=== PATIENT | male | born 1950 | race Caucasian/White ===

== ENCOUNTER 2020-03-22 14:47 | Emergency (ER) | payer OTHER, MEDICAID ==
[~2020-03-22] VITALS: Ht 177.8 cm; Wt 83.9 kg
--- NOTE | 2020-03-22 14:50 | NUR ---
PATIENT PRESENTS TO ED ON A 5150 HOLD FROM [facility] [place] . FACILITY STATES THAT PT KEPT TRYING TO RUN OUT OF THE FACILITY. [place] [employer] PLACED PT ON HOLD FOR DANGER TO SELF. DENIES N/V/D; SKIN IS PINK/WARM/DRY; AAOX1 WITH EVEN AND STEADY GAIT; LUNGS CLEAR BL; HR EVEN AND REGULAR; PT DENIES ANY FEVER, CP, SOB, OR COUGH AT THIS TIME; PATIENT STATES PAIN OF 0/10 AT THIS TIME; VSS; PATIENT POSITIONED FOR COMFORT; HOB ELEVATED; BEDRAILS UP X2; BED DOWN. ER MD MADE AWARE OF PT STATUS.
[2020-03-22 15:00] VITALS: BP 139/96
[2020-03-22 16:04] LABS: BASOPHILS # (AUTO) 0.1 K/uL (0.00-0.22); BASOPHILS % (AUTO) 0.6 % (0.0-2.0); EOSINOPHILS % (AUTO) 0.6 % (0.0-4.0); HEMATOCRIT 45.2 % (36-52); HEMOGLOBIN 15.1 g/dL (12.0-18.0); LYMPHOCYTES # (AUTO) 1.2 K/uL (2.0-11.5); LYMPHOCYTES % (AUTO) 15.1 % (20.5-51.1); MEAN CORPUSCULAR HEMOGLOBIN 31 pg (27-31); MEAN CORPUSCULAR HGB CONC 34 g/dL (33-37); MEAN CORPUSCULAR VOLUME 93.8 fL (80-94); MONOCYTES # (AUTO) 0.7 K/uL (0.8-1.0); NEUTROPHILS # (AUTO) 6.3 K/uL (1.8-7.7); NEUTROPHILS % (AUTO) 75.7 % (42.2-75.2); PLATELET COUNT (AUTO) 202 K/uL (140-450); RED BLOOD CELL COUNT(AUTO) 4.82 MIL/uL (4.20-6.10); RED CELL DISTRIBUTION WIDTH 14.2 % (11.6-13.7); WHITE BLOOD COUNT (AUTO) 8.3 K/uL (4.8-10.8)
[2020-03-22 16:37] LABS: ALBUMIN 4.1 g/dL (3.4-5.0); ANION GAP 12.3 (8-16); ASPARTATE AMINOTRANSFERASE 29 U/L (15-37); CARBON DIOXIDE 28.9 mmol/L (21-32); CHLORIDE 103 mmol/L (98-107); GFR ARICAN-AMERICAN 95 mL/min (>90); GLUCOSE 137 mg/dL (74-106); POTASSIUM 4.2 mmol/L (3.5-5.1); SODIUM SERUM 140 mmol/L (136-145); TOTAL BILIRUBIN 0.4 mg/dL (0.0-1.0); UREA NITROGEN, BLOOD 13 mg/dL (7-18)
[2020-03-22 16:38] LABS: ACETAMINOPHEN < 0.5 ug/ml (10-30); SALICYLATE < 2.8 mg/dL (2.8-20.0)
--- NOTE | 2020-03-22 17:45 | NUR ---
PT RESTING IN BED AT THIS TIME. ALL VSS AND BOTH SIDE RAILS UP FOR SAFETY
--- NOTE | 2020-03-22 19:05 | NUR ---
REPORT RECEIVED FROM ANDREA LINDA
--- NOTE | 2020-03-22 20:00 | NUR ---
RESTING COMFORTABLY IN BED WITH EYES OPEN. IS AWAKE, ALERT AND COOPERATIVE. VERY PLEASANT
[2020-03-22 20:02] LABS: APPEARANCE,URINE CLEAR (CLEAR); BILIRUBIN,URINE NEGATIVE (NEGATIVE); BLOOD, URINE NEGATIVE (NEGATIVE); COLOR,URINE YELLOW (YELLOW); LEUKOCYTE ESTERASE ,URINE NEGATIVE (NEGATIVE); NITRITE, URINE NEGATIVE (NEGATIVE); UGLUCOSE NEGATIVE (NEGATIVE)
[2020-03-22 20:13] LABS: BARBITURATE, URINE NEGATIVE ng/ml (NEG <=200); BENZODIAZEPINE, URINE NEGATIVE ng/mL (NEG <=200); CANNABINOID, URINE NEGATIVE ng/mL (NEG <=50); COCAINE, URINE NEGATIVE ng/mL (NEG <=300); OPIATE, URINE NEGATIVE ng/mL (NEG <=2000); PHENCYCLIDINE SCREEN,URINE NEGATIVE ng/mL (NEG <=25)
--- NOTE | 2020-03-22 21:39 | NUR ---
TELEPSYCH INITIATED PER DR. STRATTON
--- NOTE | 2020-03-22 22:13 | NUR ---
TELEPSYCH DOCTOR SPEAKING WITH PATIENT VIA REMOTE COMMUNICATION
--- NOTE | 2020-03-22 23:39 | NUR ---
HAS BEEN TRANSFERED TO CHAIR D . IS QUIET, COMFORTABLE AND COOPERATIVE
--- NOTE | 2020-03-23 02:19 | NUR ---
PT PROVIDED W/ JUICE AT THIS TIME.
--- NOTE | 2020-03-23 02:26 | NUR ---
pt ambulated to ER bed 7 w/ steady gait.
--- NOTE | 2020-03-23 04:28 | NUR ---
RESTING IN BED IN NAD. AWAKENS WITH EASE. PT IS READY FOR DISCHARGE, 5150 HAS BEEN D/C'D FOLLOWING TELE-PSYCH EVAL.
--- NOTE | 2020-03-23 05:48 | NUR ---
PER VERBAL AUTHORIZATION FROM DR. STRATTON - ORDERED ZOË COVID SWAB FOR PT AT THIS TIME IN ORDER TO BE ABLE TO RETURN BACK TO HIS FACILITY.
--- NOTE | 2020-03-23 05:55 | NUR ---
LAVON ZOË SWAB COLLECTED AND WALKED TO LAB.
[2020-03-23 06:00] VITALS: BP 145/78
--- NOTE | 2020-03-23 06:15 | NUR ---
AWAKE AND ALERT, VERY PLEASANT
--- NOTE | 2020-03-23 07:11 | NUR ---
REPORT RECEIVED FROM ANDREA ARITA. TX OF CARE AT THIS TIME.
--- NOTE | 2020-03-23 10:00 | NUR ---
BREAKFAST PROVIDED TO PT TO BEDSIDE. PT IS EATING IN THE BED.
--- NOTE | 2020-03-23 12:12 | NUR ---
PT REFUSED TO CHECK VITAL SIGNS.
--- NOTE | 2020-03-23 12:20 | NUR ---
PT HAS BEEN TRANSFERRED BY [facility] TO [facility].
--- NOTE | 2020-03-23 12:22 | NUR ---
CALLED PT'S DAUGHTER RAVINDER ABRAHAM AT PHONE # AT [phone] AND GAVE HER THE NAME, ADDRESS, AND THE PHONE NUMBER OF THE FACILITY.
== END 2020-03-23 12:22 ==
LOC: MED 14:47
DX: G93.40 Encephalopathy, unspecified (principal); F03.90 Unspecified dementia, unspecified severity, without behavioral disturbance, psychotic disturbance, mood disturbance, and anxiety; I10 Essential (primary) hypertension; Z20.828 Contact with and (suspected) exposure to other viral communicable diseases
CPT/HCPCS: 36415; 70450; 80053; 80305; 81003; 84484; 85025; 87426; 93005; 99285; G0480; G0482